=== PATIENT | female | born 1955 | race Caucasian/White ===

== ENCOUNTER 2016-12-30 10:14 | Emergency (ER) | payer OTHER ==
[2016-12-30 10:30] VITALS: RESP 16
[2016-12-30] MEDS ORDERED: OXYMETAZOLINE 30 ML NASAL SPRAY ONE (11:36)
[2016-12-30] MEDS ORDERED: SILVER NITRATE APPLICATOR 1 APPL TP ONE (11:37)
--- NOTE | 2016-12-30 11:42 | EDPHY ---
H & P Stated Complaint: 0800 nose bleed start, inr 1.4 last saturday Time Seen by Provider: 12/30/16 11:26 HPI/ROS: CHIEF COMPLAINT: epistaxis HISTORY OF PRESENT ILLNESS: 61-year-old female presents emergency department with a nosebleed that started upon awakening 3 hours prior to arrival. Patient reports she soaked a cotton ball in Afrin and put up her nose. He continues to bleed. Patient is on Coumadin, she had an INR of 1.4 4 days ago. Patient gets frequent nosebleeds. Last epistaxis was 2 weeks ago in the left nare and she was seen by ENT VITO Feldman. Epistaxis was cauterized at this time. No return of nose bleed until this morning. Patient reports she was not picking her nose or blowing her nose. She wears oxygen at night with a humidifier. No headache, chest pain, shortness of breath, lightheadedness or dizziness. REVIEW OF SYSTEMS: A comprehensive 10 point review of systems is otherwise negative aside from elements mentioned in the history of present illness. Source: Patient Exam Limitations: No limitations - Personal History Current Tetanus/Diphtheria Vaccine: Yes Current Tetanus Diphtheria and Acellular Pertussis (TDAP): Yes Tetanus Vaccine Date: 2004 - Medical/Surgical History Hx Asthma: No Hx Chronic Respiratory Disease: No Hx Diabetes: No Hx Cardiac Disease: Yes Hx Renal Disease: No Hx Cirrhosis: No Hx Alcoholism: No Hx HIV/AIDS: No Hx Splenectomy or Spleen Trauma: No Other PMH: HX: Coronary disease status post 2 stents, HYPOTHYROID, HTN, HYPERLIPIDEMIA, "CLOT IN HEART", spontaneous pneumothorax, HERNIA, OPEN HEART SURGERY, HYSTERECTOMY - Social History Smoking Status: Never smoked - Physical Exam Exam: GEN: Awake, alert, oriented, no acute distress RESP: nl resp effort HEENT: Left naris with anterior septal epistaxis small pulsatile bleeder MSK: Normal appearing SKIN: [place], warm, dry Constitutional: Initial Vital Signs Temperature (C) 36.4 C 12/30/16 10:28 Heart Rate 84 12/30/16 10:28 Respiratory Rate 16 12/30/16 10:28 Blood Pressure 147/104 H 12/30/16 10:28 O2 Sat (%) 94 12/30/16 10:28 O2 Delivery Mode Room Air Allergies/Adverse Reactions: No Known Allergies Allergy (Unverified 03/02/12 10:56) Home Medications: Medication Instructions Recorded CHOLECALCIFEROL [VITAMIN D] 1,000 unit PO DAILY 05/21/09 Levothyroxine Sodium [SYNTHROID] 75 mcg PO DAILY@06 05/21/09 RAMIPRIL [ALTACE] 2.5 mg PO HS 05/21/09 Carvedilol [Coreg (*)] 3.125 mg PO DAILY 03/02/12 Carvedilol [Coreg (*)] 6.25 mg PO HS 03/02/12 Atorvastatin Calcium [Lipitor 40 40 mg PO HS 01/27/14 mg (*)] Herbals/Supplements -Info Only 1 ea PO DAILY 01/27/14 Multivitamins [Multivitamin (*)] 1 each PO DAILY 01/27/14 Warfarin Sodium [Coumadin 7.5MG 7.5 mg PO DAILY16 01/27/14 (*)] Aspirin EC [Aspirin EC 325 mg (*)] 325 mg PO DAILY #0 tab 01/29/14 Famotidine [Pepcid 20 MG (*)] 20 mg PO BID #60 tab 01/29/14 Isosorbide Mononitrate [Imdur 30 30 mg PO DAILY #30 tab.sr 01/29/14 mg (*)] Polyethylene Glycol 3350 [Miralax 17 gm PO DAILY PRN #0 pkt 01/29/14 17 gm (*)] Sennosides/Docusate Sodium 1 - 2 tab PO BID #0 tab 01/29/14 [Senokot-S] Penicillin V Potassium [Pen Vk 500 mg PO Q6H 5 Days 05/07/14 500mg (*)] Procardia 10 mg (RX) 05/07/14 Medical Decision Making Procedures: Procedure: Epistaxis control. Indication: Nosebleed not controlled by direct pressure. Risks, benefits, alternatives discussed with patient. Consent was obtained. The left nares was cleared with Raman suction and blowing nose. Several clots were removed. Afrin was sprayed. Anterior Rhinoscopy was performed with fiber optic headlamp and nasal speculum. The anterior epistaxis was identified. The patient was treated with 1st silver nitrate stick which was not successful then packing. Excellent hemostasis was obtained. Following the procedure, the patient was re-examined every 15 to 30 minutes until the patient was free from epistaxis for 1-hour post procedure. The patient tolerated the procedure well. The procedure was performed by myself. - Data Points Laboratory Results: 12/30/16 11:55 PT 19.7 SEC H SEC (12.0-15.0) INR 1.67 H (0.83-1.16) Departure - Departure Disposition: Home, Routine, Self-Care Clinical Impression: Acute anterior epistaxis Condition: Good Instructions: Nosebleed (ED) Additional Instructions: Follow up with Tacho Feldman on Saturday to have the nasal packing removed. Return to the emergency department for any return of nose bleed. Referrals: Tacho Feldman PA [Physician [facility]] - As per Instructions
[2016-12-30 12:12] LABS: INR 1.67 (0.83-1.16); PROTIME(PATIENT) 19.7 SEC (12.0-15.0)
[2016-12-30 13:32] VITALS: BP 122/86; PULSE 70; TEMP 99.1; O2SAT 96
== END 2016-12-30 13:43 | disposition home or self-care (01) ==
PROC: 095KXZZ Destruction of Nasal Mucosa and Soft Tissue, External Approach (ICD-10-PCS; principal; 2016-12-30)
DX: R04.0 Epistaxis (principal); I10 Essential (primary) hypertension; I25.10 Atherosclerotic heart disease of native coronary artery without angina pectoris; Z79.01 Long term (current) use of anticoagulants; Z79.82 Long term (current) use of aspirin; Z95.5 Presence of coronary angioplasty implant and graft

== ENCOUNTER → 2017-03-01 | Outpatient (CLI) | payer OTHER | LOC: FIMAGING 14:03 | PROVIDERS: ATTEND Obstetrics & Gynecology | DX: N83.202 Unspecified ovarian cyst, left side (principal); Z90.710 Acquired absence of both cervix and uterus ==

== ENCOUNTER → 2017-07-02 | Outpatient (CLI) | payer OTHER | LOC: FIMAGING 15:30 | PROVIDERS: ATTEND Obstetrics & Gynecology | DX: N95.0 Postmenopausal bleeding (principal); N83.202 Unspecified ovarian cyst, left side; N83.201 Unspecified ovarian cyst, right side ==

== ENCOUNTER → 2017-07-18 | Outpatient (CLI) | payer OTHER | LOC: BMCIMAGING 08:54 | PROVIDERS: ATTEND Obstetrics & Gynecology | DX: Z12.31 Encounter for screening mammogram for malignant neoplasm of breast (principal) | CPT/HCPCS: G0202 ==

== ENCOUNTER → 2017-08-10 | Outpatient (CLI) | payer OTHER | LOC: BMCIMAGING 10:14 | PROVIDERS: ATTEND Family Medicine | DX: J18.1 Lobar pneumonia, unspecified organism (principal) ==

== ENCOUNTER → 2017-08-29 | Outpatient (CLI) | payer OTHER | LOC: FIMAGING 08:10 | PROVIDERS: ATTEND Family Medicine | DX: J42 Unspecified chronic bronchitis (principal); R91.1 Solitary pulmonary nodule; Z87.01 Personal history of pneumonia (recurrent) ==

== ENCOUNTER 2017-09-07 17:12 | Inpatient (IN) | payer OTHER ==
--- NOTE | 2017-09-07 17:23 | CPEKG ---
Heart Rate: 85 RR Interval: 706 P-R Interval: 184 QRSD Interval: 94 QT Interval: 376 QTC Interval: 447 P [place]: 41 QRS [place]: -63 T Wave [place]: 108 EKG Severity - ABNORMAL ECG - EKG Impression: SINUS RHYTHM EKG Impression: LEFT ATRIAL ABNORMALITY EKG Impression: INFERIOR INFARCT, ACUTE EKG Impression: PROBABLE ANTERIOR INFARCT, ACUTE EKG Impression: ST-elevation HI Electronically Signed By: Ronaldo Werner 07-Sep-2017 17:26:00
[2017-09-07] MEDS ORDERED: ASPIRIN 81 MG CHEWABLE TAB PO ONE (17:26)
[2017-09-07] MEDS ORDERED: NS 500 ML IV ONE (17:26)
--- NOTE | 2017-09-07 17:33 | EDPHY ---
H & P Stated Complaint: chest pain since 1629 and lt ue weakness pain Time Seen by Provider: 09/07/17 17:19 HPI/ROS: CHIEF COMPLAINT: Chest pain HISTORY OF PRESENT ILLNESS: The patient is a 61-year-old female who comes to the emergency department complaining of chest pain that began an hour ago. She states that it is similar to her previous NM. It is a pain in her left chest that radiates down to her left arm. No shortness of breath. No diaphoresis or nausea. She had something similar in 2001 and had a stent placed in her LAD. That stent occluded and she had another episode in 2006. They tried to recanalized it but were unable to because it was too circuitous. She ended up having myocardial test and in 2011 a myomectomy. She takes warfarin daily. She has not taken aspirin today. REVIEW OF SYSTEMS: Constitutional: denies: chills, fever, recent illness, recent injury EENTM: denies: blurred vision, double vision, nose congestion Respiratory: denies: cough, shortness of breath Cardiac: See HPI Gastrointestinal/Abdominal: denies: abdominal pain, diarrhea, nausea, vomiting, blood streaked stools Genitourinary: denies: dysuria, frequency, hematuria, pain Musculoskeletal: denies: joint pain, muscle pain Skin: denies: lesions, rash, jaundice, bruising Neurological: denies: headache, numbness, paresthesia, tingling, dizziness, weakness Hematologic/Lymphatic: denies: blood clots, easy bleeding, easy bruising Immunologic/allergic: denies: HIV/AIDS, transplant EXAM: GENERAL: Well-appearing, well-nourished and in no acute distress. HEAD: Atraumatic, normocephalic. EYES: Pupils equal round and reactive to light, extraocular movements intact, sclera anicteric, conjunctiva are normal. ENT: TMs normal, nares patent, oropharynx clear without exudates. Moist mucous membranes. NECK: Normal range of motion, supple without lymphadenopathy or JVD. LUNGS: Breath sounds clear to auscultation bilaterally and equal. No wheezes rales or rhonchi. HEART: Regular rate and rhythm without murmurs, rubs or gallops. ABDOMEN: Soft, nontender, normoactive bowel sounds. No guarding, no rebound. No masses appreciated. BACK: No CVA tenderness, no spinal tenderness, step-offs or deformities EXTREMITIES: Normal range of motion, no pitting or edema. No clubbing or cyanosis. NEUROLOGICAL: Cranial nerves II through XII grossly intact. Normal speech, normal gait. 5/5 strength, normal movement in all extremities, normal sensation PSYCH: Normal mood, normal affect. SKIN: Warm, dry, normal turgor, no visible rashes or lesions. Source: Patient Exam Limitations: No limitations - Personal History Current Tetanus/Diphtheria Vaccine: Unsure Current Tetanus Diphtheria and Acellular Pertussis (TDAP): Unsure Tetanus Vaccine Date: 2004 - Medical/Surgical History Hx Asthma: No Hx Chronic Respiratory Disease: No Hx Diabetes: No Hx Cardiac Disease: Yes Hx Renal Disease: No Hx Cirrhosis: No Hx Alcoholism: No Hx HIV/AIDS: No Hx Splenectomy or Spleen Trauma: No Other PMH: HX: Coronary disease status post 2 stents, HYPOTHYROID, HTN, HYPERLIPIDEMIA, "CLOT IN HEART", spontaneous pneumothorax, HERNIA, OPEN HEART SURGERY, HYSTERECTOMY - Family History Significant Family History: No pertinent family hx - Social History Smoking Status: Never smoked Alcohol Use: Sober Drug Use: None Constitutional: Initial Vital Signs Temperature (C) 36.7 C 09/07/17 17:16 Heart Rate 91 09/07/17 17:16 Respiratory Rate 16 09/07/17 17:16 Blood Pressure 160/111 H 09/07/17 17:16 O2 Sat (%) 93 09/07/17 17:16 O2 Delivery Mode Room Air O2 (L/minute) 2 Allergies/Adverse Reactions: No Known Allergies Allergy (Unverified 03/02/12 10:56) Home Medications: Medication Instructions Recorded Carvedilol [Coreg (*)] 6.25 mg PO DAILY 03/02/12 Atorvastatin Calcium [Lipitor 40 40 mg PO HS 01/27/14 mg (*)] Herbals/Supplements -Info Only 1 ea PO DAILY 01/27/14 Multivitamins [Multivitamin (*)] 1 each PO DAILY 01/27/14 Warfarin Sodium [Coumadin 7.5MG 7.5 mg PO SUMOWEFRSA 01/27/14 (*)] Carvedilol [Coreg (*)] 12.5 mg PO DAILY@18 09/07/17 Cholecalciferol Vit D3 [Vitamin D3 1,000 units PO DAILY 09/07/17 (*)] Denosumab [Prolia] 60 mg SQ Q6M 09/07/17 Levothyroxine [Synthroid 75 mcg 75 mcg PO DAILY06 09/07/17 (*)] Ramipril [Altace 5mg (*)] 5 mg PO HS 09/07/17 Warfarin Sodium [Coumadin] 6 mg PO TUTH 09/07/17 Medical Decision Making - Diagnostics EKG Interpretation: An EKG obtained and was read and documented in trace view. Please see trace view for full reading and report. Sinus rhythm with ST elevation in anterior leads with reciprocal changes in lateral leads. ED Course/Re-evaluation: Soon after receiving the EKG called a cardiac alert. 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 I will give her aspirin. She is currently on Coumadin. 6:[address] Carbajal is here and will take the patient to the confectionery laboratory manager. Also discussed the case with Dr. Anna Singleton who is the patient's primary corporate representative. She states the patient's initial lesion was a coronary artery dissection. Differential Diagnosis: Partial list of the Differential diagnosis considered include but were not limited to; ST elevation NM, ventricular aneurysm and although unlikely based on the history and physical exam, I also considered dissection, PE, infection. - Data Points Laboratory Results: Laboratory Results 09/08/17 05:35 09/08/17 05:35 Medications Given: Amlodipine Besylate (Norvasc) 2.5 mg PO DAILY [facility] Stop: 03/07/18 09:29 Last Admin: 09/09/17 09:29 Dose: 2.5 mg Aspirin (Aspirin) 81 mg PO DAILY [facility] Stop: 03/07/18 09:59 Last Admin: 09/09/17 09:29 Dose: 81 mg Atorvastatin Calcium (Lipitor) 40 mg PO HS [facility] Stop: 03/07/18 20:59 Last Admin: 09/09/17 20:08 Dose: 40 mg Carvedilol (Coreg) 6.25 mg PO DAILY [facility] Stop: 03/07/18 09:29 Last Admin: 09/09/17 09:29 Dose: 6.25 mg Carvedilol (Coreg) 12.5 mg PO DAILY@18 [facility] Stop: 07/27/18 17:59 Last Admin: 09/09/17 17:17 Dose: 12.5 mg Cholecalciferol (Vitamin D) 1,000 units PO DAILY [facility] Stop: 03/07/18 09:29 Last Admin: 09/09/17 09:29 Dose: 1,000 units Levothyroxine Sodium (Synthroid) 75 mcg PO DAILY06 [facility] Stop: 03/07/18 09:29 Last Admin: 09/09/17 06:32 Dose: 75 mcg Multivitamins (Tab-A-Wilfrid) 1 each PO DAILY [facility] Stop: 03/07/18 09:29 Last Admin: 09/09/17 09:28 Dose: 1 each Ramipril (Altace) 2.5 mg PO HS [facility] Stop: 03/07/18 20:59 Last Admin: 09/09/17 20:08 Dose: 2.5 mg Warfarin Sodium (Coumadin) 7.5 mg PO [id number]@1600 [facility] Stop: 03/07/18 09:29 Last Admin: 09/09/17 17:16 Dose: 7.5 mg Discontinued Medications Aspirin (Aspirin) 324 mg PO EDNOW ONE Stop: 09/07/17 17:27 Last Admin: 09/07/17 17:31 Dose: 324 mg Sodium Chloride (Ns) 500 mls @ 1,000 mls/hr IV EDNOW ONE PRN Reason: Protocol Stop: 09/07/17 17:55 Last Admin: 09/07/17 17:32 Dose: 500 mls Warfarin Sodium (Coumadin) 7.5 mg PO SUMOWEFRSA [facility] Stop: 03/07/18 09:29 Last Admin: 09/08/17 09:51 Dose: 7.5 mg Departure - Departure Disposition: To OP Cath/Surgery Clinical Impression: STEMI (ST elevation myocardial infarction) Qualifiers: Involved coronary artery: unspecified coronary artery Qualified Code(s): I21.3 - ST elevation (STEMI) myocardial infarction of unspecified site Condition: Critical
[2017-09-07 17:43] LABS: PLATELET COUNT 278 10^3/uL (150-400)
[2017-09-07] MEDS ORDERED: LIDOCAINE 1% 300 MG/30 ML SDV ONE (17:50)
[2017-09-07] MEDS ORDERED: fentaNYL 100 MCG/2 ML INJ ONE (17:50)
[2017-09-07] MEDS ORDERED: MIDAZOLAM 2 MG/2 ML VIAL ONE (17:51)
[2017-09-07] MEDS ORDERED: IOPAMIDOL (ISOVUE-370) 150 ML BTL IV ONE (17:51)
[2017-09-07] MEDS ORDERED: NITROGLYCERIN 1,500 MCG/15 ML VIAL MISC ONE (17:51)
[2017-09-07] MEDS ORDERED: BIVALIRUDIN 250 MG/5 ML VIAL IV ONE (17:52)
[2017-09-07] MEDS ORDERED: HEPARIN 10,000 UNIT/10 ML MDV (1,000 UNIT/ML) ONE (17:52)
[2017-09-07 17:53] LABS: INR 1.98 (0.83-1.16); PROTIME(PATIENT) 22.6 SEC (12.0-15.0)
[2017-09-07] MEDS ORDERED: ATROPINE SULFATE 1 MG/10 ML SYR ONE (18:22)
[2017-09-07] MEDS ORDERED: ATROPINE SULFATE 1 MG/10 ML SYR IVP PRN (19:00)
[2017-09-07] MEDS ORDERED: ONDANSETRON 4 MG/2 ML VIAL IVP PRN (19:00)
--- NOTE | 2017-09-07 23:27 | GCON ---
[f rep st] CONSULTATION DATE OF CONSULTATION: 09/07/2017 CHIEF COMPLAINT: We have been asked by Dr. Werner to evaluate the patient with a chief complaint of chest pain. HISTORY OF PRESENT ILLNESS: The patient is a 61-year-old female with known coronary artery disease w ho presented to the emergency department on 09/07/2017 with a chief complaint of chest pain. The pat felipe was in her usual state of health until the day of admission, at approximately 4:30 when she bega n to experience chest pain. The chest pain was described as an ache in her chest extending into her left arm. The chest pain was not associated with nausea, vomiting, or diaphoresis. The chest pain w as worse with respiration. It was not positional. When the chest pain did not improve, she presente d to the emergency department for further evaluation. In the emergency department, she had an EKG pe rformed demonstrating sinus rhythm, incomplete right bundle branch block, left atrial enlargement, in ferior IL with Q-waves and ST-segment elevation, anterior IL with ST elevation in leads V3 through V 5. When compared to a previous EKG, the ST elevations in leads V3 through V5 were new. We are consu lted to help in the further management of this patient. The patient was diagnosed with coronary stacia ry disease back in 2001 when she presented with an anterior ST-segment elevation myocardial infarctio n secondary to an LAD dissection. She was treated with percutaneous coronary intervention followed b y acute closure. She was managed medically since that time until 2006 when she presented with a non ST-segment elevation IL involving a small OM branch which was not intervened upon. In 2010 she under went aneurysmectomy of her left apex. In 2013, she presented with an anterior ST segment elevation m yocardial infarction. She was taken to the cardiac catheterization laboratory. Coronary angiography at that time demonstrated no significant obstructive disease involving the right coronary artery and circumflex coronary artery. The left anterior descending coronary artery was distally occluded but was being fed by [id number] collaterals and was not significantly changed from previous. The patie nt was diagnosed with probable coronary spasm and managed medically. The patient has history of an i schemic cardiomyopathy. Her left ventricular ejection fraction has been between 35 and 45%. She is status post ICD placement in 2009. Patient has done well until the day of admission. She denied pre vious episodes of chest pain as well as symptoms of orthopnea and PND. She has noted some increased lower extremity edema since working and spending a fair amount of time on her feet. PAST MEDICAL HISTORY: 1. Coronary artery disease as outlined in History of Present Illness. 2. History of atrial fibrillation. 3. Hypertension. 4. Hyperlipidemia. MEDICATIONS: Please see medicine reconciliation form. REVIEW OF SYSTEMS: A 10-point review of systems was unremarkable except as noted in History of Prese nt Illness. FAMILY HISTORY: Noncontributory. PHYSICAL EXAMINATION: GENERAL: The patient is resting in bed. She is complaining of ongoing sympto ms of chest and arm discomfort. VITALS: Temperature is afebrile. Pulse is 150/110, heart rate is 8 2, respiratory rate is 19, SaO2 is 100% on 2 L nasal cannula. HEENT: Normocephalic atraumatic. Ext raocular muscles intact. LUNGS: Clear to auscultation anteriorly. CARDIOVASCULAR: Regular rate an d rhythm. S1, S2. Grade 2/6 holosystolic murmur is noted at the left sternal border. ABDOMEN: Sof t, nontender. Normoactive bowel sounds. EXTREMITIES: 2+ lower extremity edema bilaterally. There is evidence of stasis changes. NEURO: Patient is awake, alert, and oriented x3. The remainder of the physical exam was abbreviated given the acute nature of the condition. LABORATORY: White blood cell count 5.94, hemoglobin 14.8, hematocrit 44.5, platelet count 278. INR 1.98. Sodium 142, potassium 4.5 chloride 105, CO2 25, BUN 21, creatinine 0.7. Troponin within janelle l limits x1. EKG is outlined in History of Present Illness. ASSESSMENT/PLAN: The patient is a 61-year-old female with known coronary disease who presents with a chest pain syndrome. Her EKG demonstrates new ST-segment elevation in leads V3 through V5. Patient has continued to have ongoing symptoms of chest pain. Reviewed risks and benefits of cardiac cathet erization with the patient and her . Will arrange to have this performed urgently. /[id number]/MODL
[2017-09-08 05:51] LABS: PLATELET COUNT 208 10^3/uL (150-400)
[2017-09-08] MEDS ORDERED: CANN-EASE 2 GM TUBE TP ONE (07:29)
[2017-09-08] MEDS ORDERED: WARFARIN SODIUM 7.5 MG TAB PO SCH (09:30)
[2017-09-08] MEDS: CHOLECALCIFEROL VIT D3 1,000 UNITS TAB PO SCH (09:51)
--- NOTE | 2017-09-08 09:51 | PDCARPN ---
Cardiology Progress Note Assessment/Plan: Assessment/plan: 61-year-old female with history of spontaneous LAD dissection 2001. She has a resultant cardiomyopathy and has actually had an aneurysm ectomy in 2011. She has an ICD. History of stroke for which she takes chronic warfarin therapy, paroxysmal atrial fibrillation, and pulmonary hypertension most likely related to nocturnal hypoxia. Her nocturnal hypoxia is not treated. She also has valvular heart disease with moderate mitral regurgitation moderate to severe tricuspid regurgitation. She was admitted on September [address]-elevation GA. Coronary angiography revealed no new lesions. She does have mid to distal LAD disease which has been known for several years. Echocardiogram is unchanged. Differential diagnosis includes coronary vasospasm, myocarditis, Takotsubo's cardiomyopathy. Troponin currently 12. 1. ST-elevation GA: No lesions amenable to PCI. Coronary anatomy unchanged compared with 2013 when she presented with a very similar clinical picture including troponin elevation. We will check ESR and CRP. Reinitiate low-dose Norvasc which she has previously been on, but we stopped in June due to lower extremity edema. Follow-up troponin until peak. No evidence of heart failure or malignant arrhythmia. Continue statin. We will add low-dose aspirin , even though she is on warfarin. She has previously had significant problems with epistaxis, so we will have to be careful with the addition of the antiplatelet agent. 2. Cardiomyopathy: Ejection fraction 35-40%. Does not appear volume overloaded. Continue Coreg, ERICKA-inhibitor. She is not routinely required diuretics in the past. 3. Pulmonary hypertension: Current PA pressures are in the mid 50s. She does see Dr. Dale tucker and wears nocturnal oxygen. 4. Paroxysmal atrial fibrillation: Mostly in sinus rhythm here. Continue warfarin. 5. Valvular heart disease: Overall stable. 6. Pacemaker/ICD: Continue routine checks. She may be able to be discharged tomorrow. She does require a 2 midnight stay due to ST-elevation GA. Approximately 30 minutes was spent in reviewing images, chart review, direct patient care, discussion with Dr. Wang Carbajal 09/08/17 09:57 Subjective: Miroslava feels better this morning. No recurrent chest pain or arm pain. No dyspnea. Couple of days ago she felt slightly on well but did not have specific symptoms. Yesterday, while standing at the [employer] work, she started to have left arm discomfort and central chest discomfort. Because symptoms intensified she came to the ER. She did have pneumonia a month ago and has completed antibiotics. She otherwise has not had any infectious symptoms. No recent epistaxis. Reviewed/Discussed With: multidisciplinary team, other (Dr. Carbajal) Objective: Vital Signs (8 Hrs) Temp Pulse Resp BP Pulse Ox 09/08/17 08:00 36.7 C 71 20 116/70 92 09/08/17 05:30 36.7 C 70 13 117/75 97 09/08/17 05:00 67 17 111/72 98 09/08/17 04:00 73 18 116/75 98 09/08/17 03:00 71 15 122/78 H 98 09/08/17 02:00 75 16 124/83 H 99 Intake/Output (24 Hrs) 09/07/17 09/08/17 09/09/17 05:59 05:59 05:59 Intake Total 1300 Balance 1300 Intake: Oral (ml) 100 IV Intake (ml) 700 IV Infused (ml) 500 Other: Weight 78.3 kg Number of Voids Bedpan 2 Toilet 1 No acute distress. Sitting up in chair JVP 10 cm water. Regular rate and rhythm with soft early systolic murmur at the left lower sternal border. No rub or gallop. Lungs clear discussion about wheeze rhonchi or rales abdomen soft nontender nondistended without bruits masses or hepatosplenomegaly extremities are warm well perfused without cyanosis clubbing or edema Result Diagrams: 09/08/17 05:35 09/08/17 05:35 Cardiac Labs: Cardiac Lab Results (72 Hrs) 09/08/17 09/07/17 05:35 23:10 Troponin I 12.100 H 4.080 H EKG: Admission EKG reviewed: Sinus rhythm. Inferior infarct. Anterior ST elevation. Telemetry: Sinus rhythm. Nonsustained PAT. Ventricular triplet. Echocardiogram: Reviewed: LV ejection fraction 35-40% with apical hypokinesis. Moderate mitral regurgitation. Moderate to severe tricuspid regurgitation. Pulmonary artery pressures are estimated at 55. ICD10 Worksheet Patient Problems: Problems Problem Status Onset STEMI (ST elevation myocardial infarction) Acute
[2017-09-08] MEDS: MULTIVITAMINS 1 EACH TAB PO SCH (09:52)
[2017-09-08] MEDS: CARVEDILOL 6.25 MG TAB PO SCH ×2 (09:54→18:28)
[2017-09-08] MEDS: ASPIRIN 81 MG CHEWABLE TAB PO SCH (10:34)
--- NOTE | 2017-09-08 10:36 | ECHO ---
[email or web address] [address] [address] Main: [phone] Fax: Transthoracic Echocardiogram Name: BECKY MANCINI MR#: [id number] Study Date: 09/07/2017 Study Time: 07:22 PM Date of : 1955 Age: 61 year(s) Height: 170.2 cm (67 in.) Weight: 73.48 kg (162 lb.) BSA: 1.85 m2 Gender: Female Examination: Echo Indication: Chest Pain, h/o TN; s/p cath evaluate LV EF Image Quality: Adequate Contrast: Requested by: Wang Norton BP: 122 mmHg/82 mmHg Heart Rate: Rhythm: Normal sinus rhythm Indication: Chest Pain, h/o TN; s/p cath evaluate LV EF Procedure Staff Migration Agent: Danette Oswald [facility] Reading Physician: Anna Singleton Requesting Provider: Wang Norton Conclusions: Normal size left ventricle. No LV hypertrophy. Moderately reduced systolic LV function. EF is 34 %. Grade 2 diastolic dysfunction (pseudonormalized LV filling pattern). 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 Entire apex is akinetic. Normal size right ventricle. Normal RV function. There is an ICD lead noted in the right ventricle. The left atrium is moderately to severely dilated. The right atrium is moderately dilated. Mild to moderate mitral regurgitation. Right ventricular systolic pressure measures 54mmHg. The pulmonary artery pressure is moderately increased. Moderate to severe tricuspid valve regurgitation. Compared with January 27 2014 atria are now more dilated. Degree of Mitral and tricuspid regurgitation has progressed. estimated pulmonary artery pressure slightly higher. Left ventricular ejection fraction and wall motion abnormality are similar. Measurements: Chambers Valvular Assessment AV/MV Valvular Assessment TV/PV Normal Normal Normal Name Value Range Name Value Range Name Value Range Ao Lisette (MM): 3.4 cm (2.2 cm-3.7 AV Vmax: 1.00 m/s (1 m/s-1.7 TR Vmax: 3.51 mm/s ( - ) cm) m/s) TR PGmax: 49 mmHg ( - ) IVSd (2D): 0.9 cm (0.6 cm-1.1 AV maxP mmHg ( - ) syst. PAP: 54 mmHg ( - ) cm) LVOT Vmax: 0.62 m/s (0.7 m/s-1.1 PV Vmax: 0.69 m/s (0.6 m/s-0.9 LVDd (2D): 5.4 cm (3.9 cm-5.3 m/s) m/s) cm) MV E Vmax: 1.01 m/s ( - ) PV PGmax: 2 mmHg ( - ) MV A Vmax: 0.69 m/s ( - ) Patient: BECKY MANCINI Study Date: 09/07/2017 Page 1 of 2 07:22 PM LVDs (2D): 4.2 cm (2.1 cm-4 MV E/A: 1.46 ( - ) cm) LVPWd (2D): 0.7 cm ( - ) LVEF (BP): 34 % (>=55 %) Continued Measurements: Chambers Valvular Assessment AV/MV Valvular Assessment TV/PV Name Value Name Value Name Value LADs Lon.8 cm MV DecTime: 218 m/s CVP (est.): 5 mmHg LA Area: 26.3 cm2 LA Volume: 89 ml LA Volume Index: 48.1 ml/m2 RA Area: 24.2 cm2 Additional Vessels Name Value Ao Ascendin.3 cm Findings: Left Ventricle: Normal size left ventricle. No LV hypertrophy. Moderately reduced systolic LV function. EF is 34 %. Grade 2 diastolic dysfunction (pseudonormalized LV filling pattern). 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 Entire apex is akinetic. Right Ventricle: Normal size right ventricle. Normal RV function. There is an ICD lead noted in the right ventricle. Left Atrium: The left atrium is moderately to severely dilated. Right Atrium: The right atrium is moderately dilated. Mitral Valve: The mitral valve is normal in appearance and function. There is mild thickening of the mitral valve leaflets. No mitral stenosis is present. Mild to moderate mitral regurgitation. Aortic Valve: The aortic valve is normal in appearance and function. There is no aortic valve regurgitation. No aortic valve stenosis is present. Tricuspid Valve: Right ventricular systolic pressure measures 54mmHg. The pulmonary artery pressure is moderately increased. Moderate to severe tricuspid valve regurgitation. Pulmonic Valve: The pulmonic valve is normal in appearance and function. There is no pulmonic regurgitation seen. Aorta: Normal size aortic root measuring 3.4 cm. Normal size ascending aorta measuring 3.3 cm. Pericardium: No pericardial effusion. (No Signature Object) Patient: BECKY MANCINI Study Date: 09/07/2017 Page 2 of 2 07:22 PM [id number]
--- NOTE | 2017-09-08 11:04 | CPEKG ---
Heart Rate: 75 RR Interval: 800 P-R Interval: 168 QRSD Interval: 88 QT Interval: 400 QTC Interval: 447 P Kirkwood: 43 QRS Kirkwood: -88 T Wave Kirkwood: 128 EKG Severity - ABNORMAL ECG - EKG Impression: SINUS RHYTHM EKG Impression: LEFT ATRIAL ABNORMALITY EKG Impression: INFERIOR INFARCT, AGE INDETERMINATE EKG Impression: BORDERLINE R WAVE PROGRESSION, ANTERIOR LEADS EKG Impression: ABNORMAL T, CONSIDER ISCHEMIA, ANT-LAT LEADS EKG Impression: COMPARED WITH 2017 ST ELEVATION HAS IMPROVED Electronically Signed By: Anna Singleton 08-Sep-2017 13:19:17
[2017-09-08] MEDS: LEVOTHYROXINE 75 MCG TAB PO SCH (11:29)
--- NOTE | 2017-09-08 15:31 | ASMTCMCOM ---
CM Note CM Note Notes: 61 year old female admitted for for acute ST-CO. She has a hx of CAD, Afib, HTN, HLD, Pacer, Cardimyopathy. Went to [facility] and will be tx with medications. No discharge needs anticipated. Lives with her . Date Signed: 09/08/2017 03:31 PM Electronically Signed By:Jessica Guevara LCSW
[2017-09-08] MEDS: ATORVASTATIN CALCIUM 40 MG TAB PO SCH (20:08)
[2017-09-08] MEDS: RAMIPRIL 2.5 MG CAP PO SCH (20:09)
[2017-09-08] MEDS ORDERED: RAMIPRIL 5 MG CAP PO SCH (21:00)
[2017-09-09 04:25] LABS: INR 1.95 (0.83-1.16); PROTIME(PATIENT) 22.3 SEC (12.0-15.0)
[2017-09-09] MEDS: LEVOTHYROXINE 75 MCG TAB PO SCH (06:32)
[2017-09-09] MEDS: MULTIVITAMINS 1 EACH TAB PO SCH (09:28)
[2017-09-09] MEDS: CARVEDILOL 6.25 MG TAB PO SCH ×2 (09:29→17:17)
[2017-09-09] MEDS: CHOLECALCIFEROL VIT D3 1,000 UNITS TAB PO SCH (09:29)
[2017-09-09] MEDS: ASPIRIN 81 MG CHEWABLE TAB PO SCH (09:29)
--- NOTE | 2017-09-09 09:38 | SOAPPROG ---
[facility]ATHER Progress Note Assessment/Plan: 1. ST-elevation RI: Pt presented with an ST elevation RI. Angiogram with no acute thrombotic lesions. Peak troponin = 12.1. Presentation similar to 2013 when she was diagnoses with probable vasospasm. No recurrent angina. No CHF. --> observe an additional 24 hrs. --> Continue asa, coreg, and ramapril --> Norvasc for probable vasospasm. Previous ADR to nitrates. 2. Cardiomyopathy: Ejection fraction 35-40%. Does not appear volume overloaded. --> Continue coreg and ramapril 3. Pulmonary hypertension: Current PA pressures are in the mid 50s. She does see Dr. Dale tucker and wears nocturnal oxygen. 4. Paroxysmal atrial fibrillation: Mostly in sinus rhythm here. Continue warfarin. 5. Valvular heart disease: Overall stable. 6. Pacemaker/ICD: Continue routine checks. 7. Hyperlipidemia: --> FLP and LFTs now Subjective: No chest pain No orthopnea or PN + edema Objective: Vital Signs Temp Pulse Resp BP Pulse Ox 36.1 C 71 18 123/85 H 95 09/09/17 08:00 09/09/17 08:00 09/09/17 08:00 09/09/17 08:00 09/09/17 08:00 Laboratory Results 09/08/17 11:40 09/09/17 03:48 09/08/17 09/09/17 09/10/17 05:59 05:59 05:59 Intake Total 750 Output Total 1150 Balance -400 PT 22.3 SEC (12.0-15.0) H 09/09/17 03:48 INR 1.95 (0.83-1.16) H 09/09/17 03:48 Physical Exam - Physical Exam General Appearance: alert, no apparent distress Respiratory: lungs clear Cardiac/Chest: regular rate, rhythm, systolic murmur Abdomen: non-tender, soft Skin: normal color Extremities: pedal edema, other (No hematoma or echymosis R inguinal access site.) Neuro/Psych: alert, oriented x 3 ICD10 Worksheet Patient Problems: Problems Problem Status Onset STEMI (ST elevation myocardial infarction) Acute
[2017-09-09] MEDS ORDERED: WARFARIN SODIUM 7.5 MG TAB PO SCH (16:00)
[2017-09-09] MEDS: RAMIPRIL 2.5 MG CAP PO SCH (20:08)
[2017-09-09] MEDS: ATORVASTATIN CALCIUM 40 MG TAB PO SCH (20:08)
[2017-09-10 07:18] VITALS: BP 118/78; PULSE 64; RESP 12; TEMP 98.1; O2SAT 96
[2017-09-10] MEDS: ASPIRIN 81 MG CHEWABLE TAB PO SCH (08:24)
[2017-09-10] MEDS: CARVEDILOL 6.25 MG TAB PO SCH (08:24)
[2017-09-10] MEDS: MULTIVITAMINS 1 EACH TAB PO SCH (08:24)
[2017-09-10] MEDS: LEVOTHYROXINE 75 MCG TAB PO SCH (08:24)
[2017-09-10] MEDS: CHOLECALCIFEROL VIT D3 1,000 UNITS TAB PO SCH (08:24)
[2017-09-10] MEDS ORDERED: NON-FORMULARY NEW DRUG (Warfarin Sodium [Coumadin] 6 MG) PO SCH (09:20)
--- NOTE | 2017-09-10 09:58 | GDS ---
[f rep st] DISCHARGE SUMMARY DISCHARGE DIAGNOSES: 1. Coronary spasm. The patient presented to the emergency department with symptoms of chest and lef t arm pain, typical of her previous angina. EKG demonstrated ST-segment elevations in leads V3 throu gh V5. The patient was taken to the cardiac catheterization laboratory for risk stratification. Cor onary angiography demonstrated stable coronary artery disease with no acute thrombotic lesions. The patient was pain free following cardiac catheterization. Her troponin peaked at 12.1. Her current e pisode was very similar to an episode in 2013 where she also had coronary spasm. Since 2013, [facility] discontinued Norvasc secondary to lower extremity edema. The patient was started back on Norvasc 2.5 mg daily. The patient denied recurrent symptoms of angina throughout her hospitalization. 2. Hypertension. The patient has a long history of hypertension. She has been managed with Coreg a nd ramipril. Her ramipril was decreased to 2.5 mg daily to allow for addition of Norvasc 2.5 mg becca y. The patient's blood pressure was well controlled throughout her hospitalization. 3. Hyperlipidemia. The patient has a history of hyperlipidemia. She has been taking atorvastatin 4 0 mg daily. Her LDL cholesterol is 47, which is at goal for patient. 4. Cardiomyopathy. The patient has a history of an ischemic cardiomyopathy in 2001. She had an LAD dissection which resulted in a large anteroapical myocardial infarction. Since this time, she under went apical aneurysmectomy as well as ICD placement. Her baseline ejection fraction is approximately 35-40%. Echocardiogram done during hospitalization demonstrated no change in her ejection fraction. The patient denied symptoms of congestive heart failure throughout her hospitalization. 5. Pulmonary nodule. The patient has a history of a pulmonary nodule. She was scheduled for a CT s can to further evaluate her nodule. This will be performed prior to discharge. She will follow up w flavio Moreno regarding the CT scan results. SUMMARY OF PRESENTATION AND COURSE: The patient is a 61-year-old female with a complex cardiac histo ry who presented on 09/07/2017 with symptoms of chest and left arm pain. Her EKG demonstrated ST-seg ment elevations in leads V3 through V5. The patient was taken to the cardiac catheterization [facility] for risk stratification. Coronary angiography demonstrated stable coronary artery disease with n o evidence of acute thrombotic lesion. The patient became pain-free during the cardiac catheterizati on. Followup EKG demonstrated resolution of the ST-segment elevation. Peak troponin was 12.1, it wa s felt that the patient likely had a coronary spasm. She was started on Norvasc 2.5 mg daily and den ied recurrent symptoms of angina. She was observed in the hospital for arrhythmias and symptoms of c ongestive heart failure. Please see problem based format as noted above. At the time of discharge, patient was ambulating without difficulty. She denied symptoms of angina, CHF and syncope. PHYSICAL EXAM: GENERAL: At the time of discharge, patient is resting comfortably in bed. She did n ot appear to be in acute distress. VITAL SIGNS: Temperature is afebrile, pulse is 64, blood pressur e 118/78, respiratory rate is 12, SaO2 is 96% on 2 L nasal cannula. LUNGS: Clear to auscultation bi laterally. CARDIOVASCULAR: Regular rate and rhythm. S1, S2. Grade 2/6 holosystolic murmur is note d at the left sternal border. ABDOMEN: Soft, nontender. Normoactive bowel sounds. EXTREMITIES: N o evidence of a hematoma or ecchymosis at the right inguinal access site. 2+ dorsalis pedis pulse. NEURO: Patient is awake, alert, and oriented x3. SKIN: No evidence of rashes. LABORATORY DATA: White blood cell count 5.23, hemoglobin 12.2, hematocrit 36.4, platelet count was 2 08. Sodium 139, potassium 4.6, chloride 108, CO2 24, BUN 16, creatinine 0.6. INR 1.95. DISCHARGE INSTRUCTIONS: Please see discharge instructions. ARRANGEMENTS FOR FOLLOWUP CARE: 1. Patient should follow up with the primary care physician in approximately 1-2 week period of time . 2. Patient should follow up with Dr. Singleton in approximately 1-2 week period of time. /[id number]/MODL
--- NOTE | 2017-09-10 10:03 | ASMTLACE ---
[place] Length of stay for Answers: 1 day current admission Acuity / Level of Answers: Yes Care: Did the patient have an inpatient admission? # of Emergency department Answers: 0 visits in the last 6 months Score: 4 Date Signed: 09/10/2017 10:02 AM Electronically Signed By:Jodi Joyec RN
--- NOTE | 2017-09-10 13:36 | ASDISCHSUM ---
Discharge Information Plan Status:Home with No Needs Medically Cleared to Leave:09/09/2017 Discharge Date:09/10/2017 11:01 AM CM D/C Disposition:Home, Routine, Self-Care ADT D/C Disposition:Home, Routine, Self-Care Projected Discharge Date:09/09/2017 12:00 AM Transportation at D/C:Family Discharge Delay Reason: Follow-Up Date:09/09/2017 12:00 AM Discharge Slot: Final Diagnosis:ST-AR Placement Information Patient Contact Information Contact Name:DEE Relationship: Address:[address] [place] [address] City:[place] Alternate Phone: State/Zip Code:[place] [address] Email: Financial Information Financial Class:[employer] Primary Plan Desc:[facility] Primary Plan Number:[id number] Secondary Plan Desc: Secondary Plan Number: Assessment Information [facility] CM Progress Note CM Note CM Note Notes: 61 year old female admitted for for acute ST-AR. She has a hx of CAD, Afib, HTN, HLD, Pacer, Cardimyopathy. Went to [facility] and will be tx with medications. No discharge needs anticipated. Lives with her . Date Signed: 09/08/2017 03:31 PM Electronically Signed By:Jessica Guevara LCSW LACE LACPierce Length of stay for Answers: 1 day current admission Acuity / Level of Answers: Yes Care: Did the patient have an inpatient admission? # of Emergency department Answers: 0 visits in the last 6 months Score: 4 Date Signed: 09/10/2017 10:02 AM Electronically Signed By:Jodi Joyce RN Intervention Information
[2017-09-10] MEDS ORDERED: WARFARIN SODIUM 3 MG TAB PO SCH (16:00)
== END 2017-09-10 11:01 | disposition home or self-care (01) | DRG 281 ==
LOC: F2N 19:09 → OBSVTOIN 09-08 10:10 → F2W 09-08 15:50
PROVIDERS: ADMIT Internal Medicine Cardiovascular Disease; ATTEND Internal Medicine Cardiovascular Disease
PROC: B2111ZZ Fluoroscopy of Multiple Coronary Arteries using Low Osmolar Contrast (ICD-10-PCS; principal; 2017-09-07)
PROC: B2151ZZ Fluoroscopy of Left Heart using Low Osmolar Contrast (ICD-10-PCS; principal; 2017-09-07)
PROC: 4A023N7 Measurement of Cardiac Sampling and Pressure, Left Heart, Percutaneous Approach (ICD-10-PCS; principal; 2017-09-07)
DX: I21.09 ST elevation (STEMI) myocardial infarction involving other coronary artery of anterior wall (principal); I42.9 Cardiomyopathy, unspecified; I25.119 Atherosclerotic heart disease of native coronary artery with unspecified angina pectoris; I10 Essential (primary) hypertension; I27.20 Pulmonary hypertension, unspecified; I48.0 Paroxysmal atrial fibrillation; E78.5 Hyperlipidemia, unspecified; R91.1 Solitary pulmonary nodule; I25.2 Old myocardial infarction; Z95.810 Presence of automatic (implantable) cardiac defibrillator; Z95.5 Presence of coronary angioplasty implant and graft; Z79.01 Long term (current) use of anticoagulants
CPT/HCPCS: C1760; J0461; J0583; J1644; J2250; J3010; Q9967